=== PATIENT | female | born 1950 | race Caucasian/White ===

== ENCOUNTER 2018-01-06 19:51 | Emergency (ER) | payer BC, MEDICARE ==
--- NOTE | 2018-01-06 22:53 | ED ---
Bite Injury/Animal - HPI Summary HPI Summary: Patient complains of waking up this morning with a possible bite or scratch to the rear of her right knee. Does not remember any trauma or source of possible injury. Bat has been seen in the house for 3 of the past 4 nights, but has not been seen in patient's bedroom. Bat has not been captured. Patient denies any other symptoms or injury. Patient here of concern for possible rabies exposure. - History of Current Complaint Chief Complaint: EDAnimalBite Stated Complaint: BITE ON RT LEG Time Seen by Provider: 01/06/18 21:23 Hx Obtained From: Patient Onset of Injury: Happened hours ago Type of Bite: Animal Severity Currently: None Pain Intensity: 0 Pain Scale Used: 0-10 Numeric - Allergies/Home Medications Allergies/Adverse Reactions: Allergies Allergy/AdvReac Type Severity Reaction Status Date / Time No Known Allergies Allergy Verified 01/06/18 19:55 PMH/Surg Hx/FS Hx/Imm Hx Endocrine/Hematology History: Denies: Hx Anticoagulant Therapy, Hx Blood Disorders, Hx Unexplained Bleeding History: Denies: Hx Dialysis Neurological History: Reports: Other Neuro Impairments/Disorders - 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 Infectious Disease History: No Infectious Disease History: Denies: Hx of Known/Suspected MRSA, Traveled Outside the [place] in Last 30 Days - Family History Known Family History: Positive: None - Social History Alcohol Use: None Substance Use Type: Reports: None Smoking Status (MU): Never Smoked Tobacco Review of Systems Constitutional: Negative Eyes: Negative ENT: Negative Cardiovascular: Negative Respiratory: Negative Gastrointestinal: Negative Genitourinary: Negative Musculoskeletal: Negative Skin: Other Neurological: Negative Psychological: Normal All Other Systems Reviewed And Are Negative: Yes Physical Exam - Summary Physical Exam Summary: Small area of ecchymosis, superficial wound to posterior right knee. Unable to determine with certainty whether this is scratch or bite Triage Information Reviewed: Yes Vital Signs On Initial Exam: Initial Vitals Temp Pulse Resp BP Pulse Ox 98.3 F 79 16 133/60 98 01/06/18 19:53 01/06/18 19:53 01/06/18 19:53 01/06/18 19:53 01/06/18 19:53 Vital Signs Reviewed: Yes Appearance: Positive: Well-Appearing Skin: Positive: Warm Head/Face: Positive: Normal Head/Face Inspection Eyes: Positive: Normal Neck: Positive: Supple Respiratory/Lung Sounds: Positive: Clear to Auscultation Cardiovascular: Positive: Normal Abdomen Description: Positive: Nontender Musculoskeletal: Positive: Normal Neurological: Positive: Normal Psychiatric: Positive: Normal AVPU Assessment: Alert - Holly Coma Scale Best Eye Response: 4 - Spontaneous Best Motor Response: 6 - Obeys Commands Best Verbal Response: 5 - Oriented Coma Scale Total: 15 Diagnostics - Vital Signs Vital Signs Temp Pulse Resp BP Pulse Ox 01/06/18 19:53 98.3 F 79 16 133/60 98 - Laboratory Lab Statement: Any lab studies that have been ordered have been reviewed, and results considered in the medical decision making process. Bite Injury Course/Dx - Course Course Of Treatment: Patient complains of waking up this morning with a possible bite or scratch to the rear of her right knee. Does not remember any trauma or source of possible injury. Bat has been seen in the house for 3 of the past 4 nights, but has not been seen in patient's bedroom. Bat has not been captured. Patient denies any other symptoms or injury. Patient here of concern for possible rabies exposure. Physical exam: Small area of ecchymosis, superficial wound to posterior right knee. Unable to determine with certainty whether this is scratch or bite. Discussed patient with DANITZA Putnam of [facility] who recommended rabies prophylaxis be initiated. Patient refused treatment, signed out AMA - Diagnoses Provider Diagnosis: Exposure to bat without known bite Discharge - Sign-Out/Discharge Documenting (check all that apply): Patient Departure - Discharge Plan Condition: Stable Disposition: AGAINST MEDICAL ADVICE Referrals: Cassy Bauer MD [Primary Care Provider] - Additional Instructions: Follow-up with [facility] - Billing Disposition and Condition Condition: STABLE Disposition: Against Medical Advice
[2018-01-06 23:12] VITALS: BP 126/87
== END 2018-01-06 23:10 | disposition left against medical advice (07) ==
LOC: ED 19:51
DX: S81.051A Open bite, right knee, initial encounter (principal); W64.XXXA Exposure to other animate mechanical forces, initial encounter; Y92.9 Unspecified place or not applicable; Z20.3 Contact with and (suspected) exposure to rabies; Z53.21 Procedure and treatment not carried out due to patient leaving prior to being seen by health care provider; G51.0 Bell's palsy
CPT/HCPCS: 99282